=== PATIENT | male | born 1975 | race Caucasian/White ===

== ENCOUNTER 2018-06-14 14:16 | Inpatient (IN) | payer OTHER ==
[2018-06-14 15:00] VITALS: BMI 21.7
--- NOTE | 2018-06-14 15:55 | HP ---
COWS - Scale Resting Pulse: 0= [place] 80 or Below Sweatin= Chills/Flushing Restless Observation: 1= Difficult to Sit Still Pupil Size: 1= Pupils >than Normal Bone or Joint Aches: 1= Mild Discomfort Runny Nose/ Eye Tearin= Nasal Congestion GI Upset > 30mins: 2= Nausea/Diarrhea Tremor Observation: 1= Tremor [place], Not Seen Yawning Observation: 4= Several Times/Minute Anxiety or Irritability: 2=Irritable/Anxious Goose Flesh Skin: 0=Smooth Skin COWS Score: 14 CIWA Score Nausea/Vomitin Muscle Tremors: 1-None Visible, but [place] Anxiety: 2 Agitation: 0-Normal Activity Paroxysmal Sweats: 2 Orientation: 0-Oriented Tacttile Disturbances: 2-Mild Itch/Numbness/Burn (finger tips) Auditory Disturbances: 1-Very Mild Visual Disturbances: 1-Very Mild Sensitivity Headache: 3-Moderate CIWA-Ar Total Score: 15 - Admission Criteria OASAS Guidelines: Admission for Medically Managed Detox: Requires at least one of the followin. CIWA greater than 12 2. Seizures within the past 24 hours 3. Delirium tremens within the past 24 hours 4. Hallucinations within the past 24 hours 5. Acute intervention needed for co occurring medical disorder 6. Acute intervention needed for co occurring psychiatric disorder 7. Severe withdrawal that cannot be handled at a lower level of care (continued vomiting, continued diarrhea, abnormal vital signs) requiring intravenous medication and/or fluids 8. Patient presents the following: CIWA greater than 12 Admission Criteria Met: Admission criteria met Admission [facility] Chief Complaint: " withdrawal symptoms " Allergies/Adverse Reactions: Allergies Allergy/AdvReac Type Severity Reaction Status Date / Time Fish Containing Products Allergy Severe Verified 06/14/18 14:34 No Known Drug Allergies Allergy Verified 06/14/18 14:35 History of Present Illness: 42 yo male with hx of nicotine, heroin (IV), cocaine (IV) and xanax dependence is here seeking detox d/t withdrawal symptoms. Last detox unknown facility 2014. Reports no significant period of sobriety. Reports linked to needle exchange program, denies needle sharing. PMHX: HIV, asthma. Psych: depression and anxiety, and insomnia reports hx treatment clinically. Denies SI/HI. Reports hx suicide attempts x 3, with last episode five months ago, by intentional overdose. Exam Limitations: No Limitations - Ebola screening Have you traveled outside of the country in the last 21 days: No ([place]) Have you had contact with anyone from an Ebola affected area: No Do you have a fever: No - Review of Systems Constitutional: Chills, Loss of Appetite, Changes in sleep, Unintentional Wgt. Loss, Other (shakes) EENT: reports: Tearing Respiratory: reports: No Symptoms reported Cardiac: reports: No Symptoms Reported GI: reports: Diarrhea, Nausea, Poor Appetite, Poor Fluid Intake, Abdominal cramping : reports: No Symptoms Reported Musculoskeletal: reports: Back Pain (low back), Joint Pain Integumentary: reports: Erythema, Lesions (both legs and upper arms d/t injecting cocaine) Neuro: reports: Headache, Tingling (finger tips b/l) Endocrine: reports: No Symptoms Reported Hematology: reports: No Symptoms Reported Psychiatric: reports: Orientated x3, Depressed (recent seperation from spouse) Other Systems: Reviewed and Negative Patient History - Patient Medical History Hx Anemia: No Hx Asthma: No Hx Chronic Obstructive Pulmonary Disease (COPD): No Hx Cancer: No Hx Cardiac Disorders: No Hx Congestive Heart Failure: No Hx Hypertension: No Hx Hypercholesterolemia: No Hx Pacemaker: No HX Cerebrovascular Accident: No Hx Seizures: No Hx Dementia: No Hx Diabetes: No Hx Gastrointestinal Disorders: No Hx Liver Disease: No Hx Genitourinary Disorders: No Hx Sexually Transmitted Disorders: Yes (HIV ) Hx Renal Disease (ESRD): No Hx Thyroid Disease: No Hx Human Immunodeficiency Virus (HIV): Yes (2008, on bikary ) Hx Hepatitis C: No Hx Depression: Yes Hx Suicide Attempt: Yes Hx Bipolar Disorder: No Hx Schizophrenia: No - Patient Surgical History Past Surgical History: Yes Other Surgical History: left arm fx 1995 - PPD History Previous Implant?: No PPD to be Administered?: Yes - Smoking Cessation Smoking history: Current every day smoker Have you smoked in the past 12 months: Yes Aproximately how many cigarettes per day: 10 Hx Chewing Tobacco Use: No Initiated information on smoking cessation: Yes 'Breaking Loose' booklet given: 06/14/18 - Substance & Tx. History Hx Alcohol Use: No Hx Substance Use: Yes Substance Use Type: Cocaine, Heroin, Opiates, Tranquilizers Hx Substance Use Treatment: Yes (Last detox unknown facility 2014.) - Substances abused Heroin Substance route: Injection Frequency: Daily Amount used: 25 bags Age of first use: 32 Date of last use: 06/13/18 Alprazolam (Xanax) Substance route: Oral Frequency: Daily Amount used: 6 mg Age of first use: 38 Date of last use: 06/13/18 Cocaine Substance route: Injection Frequency: Daily Amount used: 1-2 grams Age of first use: 33 Date of last use: 06/13/18 Family Disease History - Family Disease History Family History: Denies Admission Physical Exam [facility] - Vital Signs Vital Signs: Vital Signs - 24 hr 06/14/18 14:31 Temperature 97.2 F L Pulse Rate 78 Respiratory 18 Rate Blood Pressure 142/98 - Physical General Appearance: Yes: Disheveled, Moderate Distress, Thin, Sweating, Anxious HEENTM: Yes: EOMI, Hearing grossly Normal, Normal ENT Inspection, Normocephalic , Normal Voice, [place], Pharynx Normal, Tm's normal, Rhinorrhea, Other (cheilitis) Respiratory: Yes: Chest Non-Tender, Lungs Clear, Normal Breath Sounds, No Respiratory Distress Neck: Yes: Other (track [place]) Breast: Yes: Breast Exam Deferred Cardiology: Yes: Regular Rhythm, Regular Rate Abdominal: Yes: Normal Bowel Sounds, Non Tender, Flat, Soft Genitourinary: Yes: Within Normal Limits Back: Yes: Normal Inspection Musculoskeletal: Yes: full range of Motion, Gait Steady, Pelvis Stable, Back pain Extremities: Yes: Normal Capillary Refill, Normal Inspection, Normal Range of Motion, Non-Tender 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, Fully Oriented, Alert, Motor Strength 5/5, Depressed Affect Integumentary: Yes: Warm, Erythema (left LE), Diaphoresis, Track [place] (neck), Other (multiple lesion in different healing stages on both arms and legs) Lymphatic: Yes: Within Normal Limits - Diagnostic (1) Opioid dependence with withdrawal Current Visit: Yes Status: Acute (2) Sedative, hypnotic or anxiolytic dependence with withdrawal, uncomplicated Current Visit: Yes Status: Acute (3) Cellulitis and abscess of left leg Current Visit: Yes Status: Acute (4) Asthma Current Visit: Yes Status: Chronic Qualifiers: Asthma severity: mild Asthma persistence: unspecified Asthma complication type: uncomplicated Qualified Code(s): J45.909 - Unspecified asthma, uncomplicated (5) Human immunodeficiency virus (HIV) disease Current Visit: Yes Status: Chronic Cleared for Admission S - Detox or Rehab [facility] Level of Care: Medically Managed Detox Regimen/Protocol: Methadone/Valium Breathalyzer - Breathalyzer Breathalyzer: 0 Urine Drug Screen - Test Device Lot number: [id number] Expiration date: 01/15/20 - Control Is test valid?: Yes - Results Drug screen NEGATIVE: Yes Urine drug screen results: ALFONZO-Cocaine, MOP-Opiates, BZO-Benzodiazepines Inpatient Rehab Admission - Rehab Decision to Admit Inpatient rehab admission?: No
[2018-06-14] MEDS ORDERED: ACETAMINOPHEN 325 MG TABLET (FP) PO PRN (16:04)
[2018-06-14] MEDS ORDERED: guaiFENesin 200 MG/10 ML 10 ML UNIT-DOSE CUPS PO PRN (16:04)
[2018-06-14] MEDS ORDERED: NICOTINE POLACRILEX 2 MG GUM BUC PRN (16:04)
[2018-06-14] MEDS ORDERED: ONDANSETRON *ODT* 4 MG TABLET SL PRN (16:04)
[2018-06-14] MEDS ORDERED: MENTHOL/PHENOL 1 EACH UD MM PRN (16:04)
[2018-06-14] MEDS ORDERED: MAGNESIUM CITRATE 300 ML BOTTLE PO PRN (16:04)
[2018-06-14] MEDS ORDERED: P-EPHED 60MG/TRIPROLIDI 2.5MG TABLET PO PRN (16:04)
[2018-06-14] MEDS ORDERED: MAGNESIUM HYDROX 2400MG/30ML ORAL SUSPENSION 30 ML CUP PO PRN (16:04)
[2018-06-14] MEDS ORDERED: cloNIDine HCL 0.1 MG TABLET PO PRN (16:14)
[2018-06-14] MEDS ORDERED: ALBUTEROL SO4 0.083% IH SOL 2.5 MG/3 ML VIAL.NEB. NEB PRN (16:47)
[2018-06-14] MEDS ORDERED: METHADONE HCL 10 MG TABLET (FOR DETOX USE ONLY) ONE ×2 (17:55→18:07)
[2018-06-14] MEDS ORDERED: METHADONE HCL 5 MG TABLET (FOR DETOX USE ONLY) ONE ×2 (17:55→18:07)
[2018-06-14] MEDS ORDERED: diazePAM 5 MG TABLET PO ONE (18:00)
[2018-06-14] MEDS ORDERED: METHADONE (DETOX) 10 MG, METHADONE (DETOX) 5 MG PO ONE (18:00)
[2018-06-14] MEDS: CEPHALEXIN MONOHYDRATE 250 MG CAPSULE (FP) PO SCH ×2 (18:11→23:11)
[2018-06-14] MEDS: THIAMINE HCL 100 MG TABLET (FP) PO SCH (22:35)
[2018-06-14] MEDS: diazePAM 5 MG TABLET PO SCH (22:35)
[2018-06-14] MEDS: MELATONIN 5 MG TABLETS PO PRN (22:36)
[2018-06-14] MEDS ORDERED: METHADONE HCL 5 MG TABLET (FOR DETOX USE ONLY) PO ONE (23:00)
[2018-06-15] MEDS: diazePAM 5 MG TABLET PO PRN ×2 (02:35→18:41)
[2018-06-15] MEDS: CEPHALEXIN MONOHYDRATE 250 MG CAPSULE (FP) PO SCH ×3 (06:37→17:55)
[2018-06-15] MEDS: diazePAM 5 MG TABLET PO SCH ×3 (06:38→22:17)
[2018-06-15] MEDS ORDERED: METHADONE HCL 5 MG TABLET (FOR DETOX USE ONLY) ONE (08:55)
[2018-06-15] MEDS ORDERED: METHADONE HCL 10 MG TABLET (FOR DETOX USE ONLY) ONE (08:56)
--- NOTE | 2018-06-15 09:55 | EKG ---
Test Reason : Blood Pressure : / mmHG Vent. Rate : 055 BPM Atrial Rate : 055 BPM P-R Int : 124 ms QRS Dur : 092 ms QT Int : 464 ms P-R-T Axes : 069 053 046 degrees QTc Int : 443 ms SINUS BRADYCARDIA WITH SINUS ARRHYTHMIA VOLTAGE CRITERIA FOR LEFT VENTRICULAR HYPERTROPHY POSSIBLE ACUTE PERICARDITIS ABNORMAL ECG NO PREVIOUS ECGS AVAILABLE Confirmed by WILLIAM TIRADO, ZACH ([id number]) on 06/15/2018 9:54:44 AM Referred By: Confirmed By:ZACH THOMAS MD
[2018-06-15] MEDS ORDERED: METHADONE HCL 5 MG TABLET (FOR DETOX USE ONLY) PO ONE (10:00)
[2018-06-15] MEDS ORDERED: METHADONE (DETOX) 20 MG, METHADONE (DETOX) 5 MG PO ONE (10:00)
[2018-06-15 10:22] LABS: ALBUMIN 3.1 g/dl (3.4-5.0); ALK PHOS 112 U/L (45-117); ANION GAP 4 MMOL/L (8-16); BILIRUBIN,TOTAL 0.3 mg/dL (0.2-1); BLOOD UREA NITROGEN 8 mg/dL (7-18); CALCIUM 8.8 mg/dL (8.5-10.1); CHLORIDE 108 mmol/L (98-107); CO2 28 mmol/L (21-32); CREATININE 0.6 mg/dL (0.55-1.3); GLUCOSE,RANDOM 117 mg/dL (74-106); POTASSIUM 3.7 mmol/L (3.5-5.1); SGOT/AST 13 U/L (15-37); SGPT/ALT 15 U/L (13-61); SODIUM 140 mmol/L (136-145); TOT PROT 6.5 g/dl (6.4-8.2)
[2018-06-15 10:26] LABS: HEMATOCRIT 38.3 % (35.4-49); HEMOGLOBIN 12.6 GM/dL (11.7-16.9); MCH 26.8 pg (25.7-33.7); MCHC 32.8 g/dl (32.0-35.9); MEAN CELL VOLUME 81.9 fl (80-96); PLATELET COUNT 182 K/MM3 (134-434); RBC 4.68 M/mm3 (4.00-5.60); RDW 16.7 % (11.9-15.9); WHITE BLOOD COUNT 5.1 K/mm3 (4.0-10.0)
[2018-06-15] MEDS: PRENATAL VITAMINS W/ FOLIC ACID TABLET (FP) PO SCH (10:40)
[2018-06-15] MEDS: NICOTINE 14 MG/24 HOURS TOPICAL PATCH TD SCH (10:40)
--- NOTE | 2018-06-15 11:20 | PN ---
S CIWA - CIWA Score Nausea/Vomitin-Mild Nausea/No Vomiting Muscle Tremors: 3 Anxiety: 3 Agitation: 3 Paroxysmal Sweats: 3 Orientation: 0-Oriented Tacttile Disturbances: 0-None Auditory Disturbances: 0-None Visual Disturbances: 0-None Headache: 0-None Present CIWA-Ar Total Score: 13 BHS COWS - Scale Resting Pulse: 0= [place] 80 or Below Sweatin=Flushed/Facial Moisture Restless Observation: 1= Difficult to Sit Still Pupil Size: 0= Normal to Room Light Bone or Joint Aches: 1= Mild Discomfort Runny Nose/ Eye Tearin= Nasal Congestion GI Upset > 30mins: 0= None Tremor Observation of Outstretched Hands: 1= Tremor [place], Not Seen Yawning Observation: 2= >3x During Session Anxiety or Irritability: 2=Irritable/Anxious Goose Flesh Skin: 0=Smooth Skin COWS Score: 10 BHS Progress Note (SOAP) Subjective: sweats shakes body aches interrupted sleep nausea Objective: 06/15/18 11:23 Vital Signs Temperature 97.0 F L 06/15/18 09:10 Pulse Rate 60 06/15/18 09:10 Respiratory Rate 18 06/15/18 09:10 Blood Pressure 137/88 06/15/18 09:10 O2 Sat by Pulse Oximetry (%) Laboratory Tests 06/15/18 06/15/18 06/15/18 06:41 07:00 07:00 WBC 5.1 RBC 4.68 Hgb 12.6 Hct 38.3 MCV 81.9 MCH 26.8 MCHC 32.8 RDW 16.7 H Plt Count 182 MPV 10.0 Sodium 140 Potassium 3.7 Chloride 108 H Carbon Dioxide 28 Anion Gap 4 L BUN 8 Creatinine 0.6 Creat Clearance w eGFR 147.75 POC Glucometer 98 Random Glucose 117 H Calcium 8.8 Total Bilirubin 0.3 AST 13 L ALT 15 Alkaline Phosphatase 112 Total Protein 6.5 Albumin 3.1 L aaox3 ambulating no acute distress Assessment: 06/15/18 11:25 withdrawal sx Plan: continue detox increase fluids zofram sl prn
--- NOTE | 2018-06-15 11:25 | CONSULT ---
[facility] Psychiatric Consult - Data Date of interview: 06/15/18 (Self-referred) Admission source: Self-referred Identifying data: Mr Ignacio is a 42 years old male, father of an 8 years old daughter, unemployedreceving HASA, homeless seeking detox treatment for opioid, cocaine and benzodiazepine Substance Abuse History: Reports history of heroin, cocaine and xanax use. Refer to addiction counselor's summary for further information Medical History: Significant for HIV since 2008, bronchial asthma and history oforthosurgery for fracture left arm. Smokes 10 cigarettes daily Psychiatric History: Reports that his first psychiatric contact was in 2010 in [place]. He said he saw a psychiatrist as outpatient, diagnosed with Bipolar/ Schizophrenia and started on Lexapro, Seroquel and Ambien. Reports 3 previous psychiatric hospitalizations all at [facility]. Reports that his most recent admission was 5-6 months ago. He was discharged on Seroquel 400 mg po BID and Wellburtin XL 150 mg po daily. Reports being prescribed these medications by his primary care physician.This is confirmed by external medication search.( scripts filled at [facility] on 04/25/18 for Seroquel & 05/24/18 fo Wellbutrin XL). 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 Reports multiple suicidal attempts by various means(hanging, delf-mutilation, overdosing ). At present, Denies experiencing psychotic, manic symptoms, S/H ideations. However, reports feeling depressed and sleeping poorly Physical/Sexual Abuse/Trauma History: Denies histoy of emotional, physical or sexual abuse as well as DV relationship. No service Additional Comment: Denies criminal history Mental Status Exam - Mental Status Exam Alert and Oriented to: Time, Place, Person Cognitive Function: Fair Patient Appearance: Well Groomed Mood: Depressed Affect: Appropriate Patient Behavior: Cooperative Speech Pattern: Clear Voice Loudness: Normal Thought Process: Intact, Goal Oriented Thought Disorder: Not Present Hallucinations: Denies Suicidal Ideation: Denies Homicidal Ideation: Denies Insight/Judgement: Poor Sleep: Poorly Appetite: Poor Muscle strength/Tone: Normal Gait/Station: Normal Psychiatric Findings - Problem List ([place] 1, 2,3) (1) Schizoaffective disorder Current Visit: Yes Status: Chronic (2) Substance induced mood disorder Current Visit: Yes Status: Acute (3) Substance-induced sleep disorder Current Visit: Yes Status: Acute (4) Opioid dependence with withdrawal Current Visit: Yes Status: Acute (5) Cocaine dependence Current Visit: Yes Status: Acute (6) Sedative, hypnotic or anxiolytic dependence with withdrawal, uncomplicated Current Visit: Yes Status: Acute (7) Nicotine dependence Current Visit: Yes Status: Chronic (8) Asthma Current Visit: Yes Status: Chronic Qualifiers: Asthma severity: mild Asthma persistence: unspecified Asthma complication type: uncomplicated Qualified Code(s): J45.909 - Unspecified asthma, uncomplicated (9) Human immunodeficiency virus (HIV) disease Current Visit: Yes Status: Chronic - Initial Treatment Plan Initial Treatment Plan: 1) Continue Wellbutrin XL 150 mg po daily and Seroquel 400 mg po BID. 2) Continue inpatient detoxification
[2018-06-15] MEDS: QUEtiapine FUMARATE 400 MG TABLET PO SCH ×2 (13:37→22:17)
[2018-06-15] MEDS: THIAMINE HCL 100 MG TABLET (FP) PO SCH (22:18)
[2018-06-16] MEDS: CEPHALEXIN MONOHYDRATE 250 MG CAPSULE (FP) PO SCH ×4 (06:01→17:55)
[2018-06-16] MEDS: diazePAM 5 MG TABLET PO PRN ×2 (06:03→16:47)
[2018-06-16] MEDS ORDERED: METHADONE HCL 10 MG TABLET (FOR DETOX USE ONLY) PO ONE (10:00)
[2018-06-16] MEDS: diazePAM 5 MG TABLET PO SCH ×2 (10:31→21:29)
[2018-06-16] MEDS: QUEtiapine FUMARATE 400 MG TABLET PO SCH ×2 (10:31→21:29)
[2018-06-16] MEDS: NICOTINE 14 MG/24 HOURS TOPICAL PATCH TD SCH (10:32)
[2018-06-16] MEDS: PRENATAL VITAMINS W/ FOLIC ACID TABLET (FP) PO SCH (10:32)
--- NOTE | 2018-06-16 10:45 | PN ---
[facility] CIWA - CIWA Score Nausea/Vomitin-No Nausea/No Vomiting Muscle Tremors: 3 Anxiety: 2 Agitation: 3 Paroxysmal Sweats: 2 Orientation: 0-Oriented Tacttile Disturbances: 0-None Auditory Disturbances: 0-None Visual Disturbances: 0-None Headache: 0-None Present CIWA-Ar Total Score: 10 BHS COWS - Scale Resting Pulse: 1= [place] 81-100 Sweatin= Chills/Flushing Restless Observation: 0= Sits Still Pupil Size: 0= Normal to Room Light Bone or Joint Aches: 1= Mild Discomfort Runny Nose/ Eye Tearin= Runny Nose/Eyes GI Upset > 30mins: 0= None Tremor Observation of Outstretched Hands: 1= Tremor [place], Not Seen Yawning Observation: 1= 1-2x During Session Anxiety or Irritability: 2=Irritable/Anxious Goose Flesh Skin: 0=Smooth Skin COWS Score: 9 BHS Progress Note (SOAP) Subjective: agitation sweats shakes i need ensure i have poor appetite Objective: 06/16/18 10:44 Vital Signs Temperature 97.9 F 06/16/18 10:03 Pulse Rate 82 06/16/18 10:03 Respiratory Rate 18 06/16/18 10:03 Blood Pressure 141/73 06/16/18 10:03 O2 Sat by Pulse Oximetry (%) Laboratory Tests 06/15/18 06/15/18 06/15/18 06:41 07:00 07:00 WBC 5.1 RBC 4.68 Hgb 12.6 Hct 38.3 MCV 81.9 MCH 26.8 MCHC 32.8 RDW 16.7 H Plt Count 182 MPV 10.0 Sodium 140 Potassium 3.7 Chloride 108 H Carbon Dioxide 28 Anion Gap 4 L BUN 8 Creatinine 0.6 Creat Clearance w eGFR 147.75 POC Glucometer 98 Random Glucose 117 H Calcium 8.8 Total Bilirubin 0.3 AST 13 L ALT 15 Alkaline Phosphatase 112 Total Protein 6.5 Albumin 3.1 L RPR Titer 06/15/18 06/15/18 06/16/18 07:00 16:25 05:59 WBC RBC Hgb Hct MCV MCH MCHC RDW Plt Count MPV Sodium Potassium Chloride Carbon Dioxide Anion Gap BUN Creatinine Creat Clearance w eGFR POC Glucometer 142 114 Random Glucose Calcium Total Bilirubin AST ALT Alkaline Phosphatase Total Protein Albumin RPR Titer Nonreactive pt is not a diabetic d/c bgm aaox3 ambulating no acute distress Assessment: 06/16/18 10:44 withdrawal sx Plan: continue detox increase fluids ensure bid
[2018-06-16] MEDS: THIAMINE HCL 100 MG TABLET (FP) PO SCH (21:29)
[2018-06-16] MEDS: SUVOREXANT 10 MG TABLET PO PRN (21:29)
[2018-06-16] MEDS: IBUPROFEN 400 MG TABLET (FP) PO PRN (22:44)
[2018-06-17] MEDS: CEPHALEXIN MONOHYDRATE 250 MG CAPSULE (FP) PO SCH ×4 (00:11→18:43)
[2018-06-17] MEDS: ACETAMINOPHEN 325 MG TABLET (FP) PO PRN (01:01)
[2018-06-17] MEDS ORDERED: diazePAM 5 MG TABLET PO SCH (06:00)
[2018-06-17] MEDS: NICOTINE 14 MG/24 HOURS TOPICAL PATCH TD SCH (09:43)
[2018-06-17] MEDS: MAG HYDROX/AL HYDROX/SIMETH 30 ML UNIT-DOSE CUP PO PRN (09:43)
[2018-06-17] MEDS: QUEtiapine FUMARATE 400 MG TABLET PO SCH (09:44)
[2018-06-17] MEDS: PRENATAL VITAMINS W/ FOLIC ACID TABLET (FP) PO SCH (09:44)
[2018-06-17] MEDS ORDERED: METHADONE HCL 5 MG TABLET (FOR DETOX USE ONLY) PO ONE (10:00)
--- NOTE | 2018-06-17 13:48 | PN ---
[place] Progress Note Note: Patient is currently of Seroquel 400 mg po BID. Nursing staff complains that he is overly sedated. He does not recall what is being done for him and he sleeps while eating his meals. Seroquel dosage will be reduced to 200 mg po BID
--- NOTE | 2018-06-17 17:25 | PN ---
S CIWA - CIWA Score Nausea/Vomitin-No Nausea/No Vomiting Muscle Tremors: 2 Anxiety: 3 Agitation: 0-Normal Activity Paroxysmal Sweats: 3 Orientation: 0-Oriented Tacttile Disturbances: 1-Very Mild Itch/Numbness Auditory Disturbances: 0-None Visual Disturbances: 2-Mild Sensitivity Headache: 0-None Present CIWA-Ar Total Score: 11 S COWS - Scale Resting Pulse: 1= [place] 81-100 Sweatin= Chills/Flushing Restless Observation: 0= Sits Still Pupil Size: 0= Normal to Room Light Bone or Joint Aches: 0= None Runny Nose/ Eye Tearin= None GI Upset > 30mins: 0= None Tremor Observation of Outstretched Hands: 2= Slight Tremor Visible Yawning Observation: 2= >3x During Session Anxiety or Irritability: 2=Irritable/Anxious Goose Flesh Skin: 0=Smooth Skin COWS Score: 8 S Progress Note (SOAP) Subjective: Sweating, Tremors, Fatigue, Poor Appetite. Objective: PATIENT A & O X 3, OBSERVED AMBULATING ON UNIT UNASSISTED. IN NO ACUTE DISTRESS. 06/17/18 17:26 Vital Signs Temperature 98.2 F 06/17/18 14:22 Pulse Rate 64 06/17/18 14:22 Respiratory Rate 18 06/17/18 14:22 Blood Pressure 120/69 06/17/18 14:22 O2 Sat by Pulse Oximetry (%) Laboratory Tests 06/15/18 06/15/18 06/15/18 06:41 07:00 07:00 WBC 5.1 RBC 4.68 Hgb 12.6 Hct 38.3 MCV 81.9 MCH 26.8 MCHC 32.8 RDW 16.7 H Plt Count 182 MPV 10.0 Sodium 140 Potassium 3.7 Chloride 108 H Carbon Dioxide 28 Anion Gap 4 L BUN 8 Creatinine 0.6 Creat Clearance w eGFR 147.75 POC Glucometer 98 Random Glucose 117 H Calcium 8.8 Total Bilirubin 0.3 AST 13 L ALT 15 Alkaline Phosphatase 112 Total Protein 6.5 Albumin 3.1 L RPR Titer 06/15/18 06/15/18 06/16/18 07:00 16:25 05:59 WBC RBC Hgb Hct MCV MCH MCHC RDW Plt Count MPV Sodium Potassium Chloride Carbon Dioxide Anion Gap BUN Creatinine Creat Clearance w eGFR POC Glucometer 142 114 Random Glucose Calcium Total Bilirubin AST ALT Alkaline Phosphatase Total Protein Albumin RPR Titer Nonreactive 06/17/18 06:19 WBC RBC Hgb Hct MCV MCH MCHC RDW Plt Count MPV Sodium Potassium Chloride Carbon Dioxide Anion Gap BUN Creatinine Creat Clearance w eGFR POC Glucometer 150 Random Glucose Calcium Total Bilirubin AST ALT Alkaline Phosphatase Total Protein Albumin RPR Titer LABS NOTED. Assessment: 06/17/18 17:27 WITHDRAWAL SYMPTOMS. Plan: CONTINUE DETOX. INCREASE DAILY PO FLUID / WATER INTAKE. PATIENT APPEARED SIGNIFICANTLY LETHARGIC DURING DAILY AM ROUNDS ASSESSMENT. PATIENT HAD BEEN CURRENTLY PRESCRIBED SEROQUEL, 400 MG PO BID BY PSYCHIATRIST. PSYCHIATRIC RE-EVALUATION ORDERED FOR FURTHER EVALUATION.
[2018-06-17] MEDS: METHOCARBAMOL 500 MG TABLET PO PRN (18:44)
[2018-06-17] MEDS: SUVOREXANT 10 MG TABLET PO PRN (22:07)
[2018-06-17] MEDS: QUEtiapine FUMARATE 200 MG TABLET PO SCH (22:07)
[2018-06-17] MEDS: THIAMINE HCL 100 MG TABLET (FP) PO SCH (22:07)
[2018-06-18] MEDS: CEPHALEXIN MONOHYDRATE 250 MG CAPSULE (FP) PO SCH ×4 (01:28→17:32)
[2018-06-18] MEDS: ACETAMINOPHEN 325 MG TABLET (FP) PO PRN (05:59)
[2018-06-18] MEDS ORDERED: METHADONE HCL 10 MG TABLET (FOR DETOX USE ONLY) PO ONE (06:00)
[2018-06-18] MEDS: MAG HYDROX/AL HYDROX/SIMETH 30 ML UNIT-DOSE CUP PO PRN (06:59)
[2018-06-18] MEDS: NICOTINE 14 MG/24 HOURS TOPICAL PATCH TD SCH (09:50)
[2018-06-18] MEDS: PRENATAL VITAMINS W/ FOLIC ACID TABLET (FP) PO SCH (09:50)
[2018-06-18] MEDS: QUEtiapine FUMARATE 200 MG TABLET PO SCH ×2 (10:53→21:10)
[2018-06-18] MEDS: BISMUTH SUBSALICYLATE 524 MG/30 ML UD PO PRN (11:47)
--- NOTE | 2018-06-18 13:54 | PN ---
S CIWA - CIWA Score Nausea/Vomitin-No Nausea/No Vomiting Muscle Tremors: 2 Anxiety: 0-No Anxiety, at Ease Agitation: 0-Normal Activity Paroxysmal Sweats: 3 Orientation: 0-Oriented Tacttile Disturbances: 1-Very Mild Itch/Numbness Auditory Disturbances: 0-None Visual Disturbances: 0-None Headache: 2-Mild CIWA-Ar Total Score: 8 BHS COWS - Scale Resting Pulse: 1= [place] 81-100 Sweatin= Chills/Flushing Restless Observation: 0= Sits Still Pupil Size: 0= Normal to Room Light Bone or Joint Aches: 1= Mild Discomfort Runny Nose/ Eye Tearin= None GI Upset > 30mins: 0= None Tremor Observation of Outstretched Hands: 1= Tremor [place], Not Seen Yawning Observation: 1= 1-2x During Session Anxiety or Irritability: 1=Feels Anxious/Irritable Goose Flesh Skin: 0=Smooth Skin COWS Score: 6 BHS Progress Note (SOAP) Subjective: c/o sweats, shakes, interrupted sleep and headache Objective: 06/18/18 13:57 Vital Signs 06/18/18 06/18/18 06:07 09:52 Temperature 97 F L 97.0 F L Pulse Rate 85 93 H Respiratory 16 18 Rate Blood Pressure 114/77 105/72 vital signs noted. Assessment: 06/18/18 13:57 AOx3, no distress noted Full ROM, ambulating in the unit. withdrawal symptoms persists. Plan: Continue detox increase fluids continue to monitor for withdrawal symptoms.
[2018-06-18] MEDS ORDERED: ALBUTEROL SO4 0.083% IH SOL 2.5 MG/3 ML VIAL.NEB. NEB PRN (20:18)
[2018-06-18] MEDS: THIAMINE HCL 100 MG TABLET (FP) PO SCH (21:10)
[2018-06-18] MEDS: MELATONIN 5 MG TABLETS PO PRN (21:11)
[2018-06-18] MEDS: SUVOREXANT 10 MG TABLET PO PRN (21:12)
[2018-06-19] MEDS: CEPHALEXIN MONOHYDRATE 250 MG CAPSULE (FP) PO SCH ×3 (00:20→13:47)
[2018-06-19] MEDS: IBUPROFEN 400 MG TABLET (FP) PO PRN ×2 (01:01→11:05)
[2018-06-19] MEDS: METHOCARBAMOL 500 MG TABLET PO PRN ×2 (01:02→13:48)
[2018-06-19] MEDS ORDERED: METHADONE HCL 10 MG TABLET (FOR DETOX USE ONLY) PO ONE (06:00)
[2018-06-19] MEDS: BISMUTH SUBSALICYLATE 524 MG/30 ML UD PO PRN ×2 (07:24→11:45)
[2018-06-19] MEDS: NICOTINE 14 MG/24 HOURS TOPICAL PATCH TD SCH (10:26)
[2018-06-19] MEDS: PRENATAL VITAMINS W/ FOLIC ACID TABLET (FP) PO SCH (10:26)
[2018-06-19] MEDS: QUEtiapine FUMARATE 200 MG TABLET PO SCH ×2 (11:03→22:08)
--- NOTE | 2018-06-19 16:53 | PN ---
[facility] CIWA - CIWA Score Nausea/Vomitin-No Nausea/No Vomiting Muscle Tremors: 2 Anxiety: 1-Mildly Anxious Agitation: 1-Slight > Activity Paroxysmal Sweats: 1-Minimal [place] Moist Orientation: 0-Oriented Tacttile Disturbances: 0-None Auditory Disturbances: 0-None Visual Disturbances: 0-None Headache: 0-None Present CIWA-Ar Total Score: 5 S COWS - Scale Resting Pulse: 1= [place] 81-100 Sweatin= Chills/Flushing Restless Observation: 0= Sits Still Pupil Size: 0= Normal to Room Light Bone or Joint Aches: 0= None Runny Nose/ Eye Tearin= None GI Upset > 30mins: 0= None Tremor Observation of Outstretched Hands: 1= Tremor [place], Not Seen Yawning Observation: 0= None Anxiety or Irritability: 1=Feels Anxious/Irritable Goose Flesh Skin: 0=Smooth Skin COWS Score: 4 S Progress Note (SOAP) Subjective: Tremor, sweating. Patient requesting to be discharged tomorrow instead of today due to withdrawal symptoms. Objective: 06/19/18 16:51 Last Vital Signs Temp Pulse Resp BP Pulse Ox 96.8 F L 89 18 129/74 06/19/18 14:11 06/19/18 14:11 06/19/18 14:11 06/19/18 14:11 Laboratory Tests 06/15/18 06/15/18 06/15/18 06:41 07:00 07:00 WBC 5.1 RBC 4.68 Hgb 12.6 Hct 38.3 MCV 81.9 MCH 26.8 MCHC 32.8 RDW 16.7 H Plt Count 182 MPV 10.0 Sodium 140 Potassium 3.7 Chloride 108 H Carbon Dioxide 28 Anion Gap 4 L BUN 8 Creatinine 0.6 Creat Clearance w eGFR 147.75 POC Glucometer 98 Random Glucose 117 H Calcium 8.8 Total Bilirubin 0.3 AST 13 L ALT 15 Alkaline Phosphatase 112 Total Protein 6.5 Albumin 3.1 L RPR Titer 06/15/18 06/15/18 06/16/18 07:00 16:25 05:59 WBC RBC Hgb Hct MCV MCH MCHC RDW Plt Count MPV Sodium Potassium Chloride Carbon Dioxide Anion Gap BUN Creatinine Creat Clearance w eGFR POC Glucometer 142 114 Random Glucose Calcium Total Bilirubin AST ALT Alkaline Phosphatase Total Protein Albumin RPR Titer Nonreactive 06/17/18 06/18/18 06/18/18 06:19 05:57 16:56 WBC RBC Hgb Hct MCV MCH MCHC RDW Plt Count MPV Sodium Potassium Chloride Carbon Dioxide Anion Gap BUN Creatinine Creat Clearance w eGFR POC Glucometer 150 100 155 Random Glucose Calcium Total Bilirubin AST ALT Alkaline Phosphatase Total Protein Albumin RPR Titer 06/19/18 05:21 WBC RBC Hgb Hct MCV MCH MCHC RDW Plt Count MPV Sodium Potassium Chloride Carbon Dioxide Anion Gap BUN Creatinine Creat Clearance w eGFR POC Glucometer 168 Random Glucose Calcium Total Bilirubin AST ALT Alkaline Phosphatase Total Protein Albumin RPR Titer Labs reviewed Assessment: 06/19/18 16:52 Withdrawal symptoms Plan: Continue detox Encouraged PO water hydration Follow up with PCP within 1-2 weeks for any abnormal lab result
[2018-06-19] MEDS: THIAMINE HCL 100 MG TABLET (FP) PO SCH (22:08)
[2018-06-19] MEDS: MELATONIN 5 MG TABLETS PO PRN (22:09)
[2018-06-20 06:33] VITALS: BP 117/68; PULSE 77; TEMP 97.3
--- NOTE | 2018-06-20 08:58 | DS ---
[facility] Detox Discharge Summary Admission Date: 06/14/18 Discharge Date: 06/20/18 - History Present History: Cocaine Dependence, Opioid Dependence, Sedative Dependence - Physical Exam Results Vital Signs: Vital Signs Temperature 97.3 F L 06/20/18 06:33 Pulse Rate 77 06/20/18 06:33 Respiratory Rate 18 06/20/18 06:33 Blood Pressure 117/68 06/20/18 06:33 O2 Sat by Pulse Oximetry (%) - Treatment Hospital Course: Detox Protocol Followed, Detoxed Safely, Responded well, Discharged Condition Good, Rehab Referral Accepted - Medication Discharge Medications: Ambulatory Orders Bictegrav/Emtricit/Tenofov Ala [Biktarvy 50-200-25 mg Tablet] 1 each PO DAILY - Diagnosis (1) Cellulitis and abscess of left leg Status: Acute (2) Cocaine dependence Status: Chronic Qualifiers: Substance use status: uncomplicated Qualified Code(s): F14.20 - Cocaine dependence, uncomplicated (3) Opioid dependence with withdrawal Status: Chronic (4) Sedative, hypnotic or anxiolytic dependence with withdrawal, uncomplicated Status: Chronic (5) Substance induced mood disorder Status: Acute (6) Substance-induced sleep disorder Status: Acute (7) Asthma Status: Chronic Qualifiers: Asthma severity: mild Asthma persistence: intermittent Asthma complication type: uncomplicated Qualified Code(s): J45.20 - Mild intermittent asthma, uncomplicated (8) Human immunodeficiency virus (HIV) disease Status: Chronic (9) Nicotine dependence Status: Chronic Qualifiers: Nicotine product type: cigarettes Substance use status: uncomplicated Qualified Code(s): F17.210 - Nicotine dependence, cigarettes, uncomplicated (10) Schizoaffective disorder Status: Chronic - AMA Did Patient Leave Against Medical Advice: No (going home to see his PCP)
== END 2018-06-20 08:56 | disposition home or self-care (01) | DRG 773 ==
LOC: YASAS 14:16 → Y6N 17:23
PROVIDERS: ADMIT Surgery; ATTEND Surgery
PROC: HZ2ZZZZ Detoxification Services for Substance Abuse Treatment (ICD-10-PCS; principal; 2018-06-14)
DX: F11.23 Opioid dependence with withdrawal (principal); F13.230 Sedative, hypnotic or anxiolytic dependence with withdrawal, uncomplicated; F14.20 Cocaine dependence, uncomplicated; F17.210 Nicotine dependence, cigarettes, uncomplicated; F25.9 Schizoaffective disorder, unspecified; F19.24 Other psychoactive substance dependence with psychoactive substance-induced mood disorder; F19.282 Other psychoactive substance dependence with psychoactive substance-induced sleep disorder; Z21 Asymptomatic human immunodeficiency virus [HIV] infection status; L03.116 Cellulitis of left lower limb; J45.20 Mild intermittent asthma, uncomplicated; Z91.013 Allergy to seafood
CPT/HCPCS: 36415; 80053; 82962; 85027; 86593; 93005; 93010; J0735; Q0162